=== PATIENT | male | born 1945 | race Caucasian/White ===

== ENCOUNTER 2018-12-25 07:59 | Day surgery (SDC) | payer OTHER ==
[~2018-12-25] VITALS: Ht 177.8 cm; Wt 121.7 kg
[~2018-12-25 07:59] MED LIST: ALBU90OI INH; BUDE6HFA INH; BUME2 PO; CEFD300 PO; CEPH500 PO; FENO160 PO; FENO54 PO; FLUT110OIA IH; FURO20; HYDCHL12.5 PO; LISI20 PO; LOSA50; METO25ER PO; METO50ER PO; NIAC500 PO; OXYC5 PO; POTCHL10ER PO; POTCHL20ER PO; RANI150 PO; STIOLTO RESPIMAT4 GM; TAMS.4ER PO; TESTOSTERONE TOP; THEO300ERC PO
[2018-12-25] MEDS ORDERED: Aspirin EC81 MG (08:25)
== END 2018-12-25 10:15 | disposition home or self-care (01) ==
LOC: ORSCSDS 07:59
PROVIDERS: Internal Medicine Gastroenterology
PROC: 0DB68ZX Excision of Stomach, Via Natural or Artificial Opening Endoscopic, Diagnostic (ICD-10-PCS; principal; 2018-12-25 09:15)
DX: K74.60 Unspecified cirrhosis of liver (principal); B19.20 Unspecified viral hepatitis C without hepatic coma; Z13.810 Encounter for screening for upper gastrointestinal disorder; K29.70 Gastritis, unspecified, without bleeding; K29.80 Duodenitis without bleeding; K57.10 Diverticulosis of small intestine without perforation or abscess without bleeding; I50.9 Heart failure, unspecified; G47.33 Obstructive sleep apnea (adult) (pediatric); J44.9 Chronic obstructive pulmonary disease, unspecified; Z95.0 Presence of cardiac pacemaker; Z87.891 Personal history of nicotine dependence; E66.01 Morbid (severe) obesity due to excess calories; Z68.38 Body mass index [BMI] 38.0-38.9, adult; Z79.899 Other long term (current) drug therapy
CPT/HCPCS: 88305; 88342; J7120

== ENCOUNTER 2019-02-07 08:10 | Day surgery (SDC) | payer OTHER ==
[~2019-02-07] VITALS: Ht 178 cm; Wt 123.1 kg
[~2019-02-07 08:10] MED LIST changes: +Aspirin EC81 MG; -FURO20; +FURO20 PO; -LOSA50; +LOSA50 PO; +OMEPRAZOLE20 MG PO; +TIOT18 INH
--- NOTE | 2019-02-07 10:16 | NUR ---
Discharge instructions reviewed with patient. Patient verbalizes understanding. Copy given to patient to take home. Discharged via wheelchair to private car for ride home.
== END 2019-02-07 23:53 | disposition home or self-care (01) ==
LOC: ORSCMMR 08:10 → ORD 09:30 → ORSCMMR 09:30
PROVIDERS: Orthopaedic Surgery
PROC: 01N50ZZ Release Median Nerve, Open Approach (ICD-10-PCS; principal; 2019-02-07 09:30)
DX: G56.02 Carpal tunnel syndrome, left upper limb (principal); I11.0 Hypertensive heart disease with heart failure; I50.9 Heart failure, unspecified; Z95.0 Presence of cardiac pacemaker; J44.9 Chronic obstructive pulmonary disease, unspecified; B19.20 Unspecified viral hepatitis C without hepatic coma; E78.5 Hyperlipidemia, unspecified; G47.33 Obstructive sleep apnea (adult) (pediatric); Z79.899 Other long term (current) drug therapy; Z87.891 Personal history of nicotine dependence
CPT/HCPCS: 87081; J0690; J2250; J2704; J3010; J7120

== ENCOUNTER → 2019-08-13 | Outpatient (CLI) | payer OTHER ==
[2019-08-13 18:52] LABS: Percent Saturation 25.5 % (20.0-50.0)
== END | disposition home or self-care (01) ==
LOC: LAB 15:05 → LAB SHORT 15:05
PROVIDERS: Internal Medicine Hematology & Oncology
DX: D51.8 Other vitamin B12 deficiency anemias (principal)
CPT/HCPCS: 82607; 82746; 83540; 83550

== ENCOUNTER 2019-12-31 12:26 | Day surgery (SDC) | payer OTHER ==
[~2019-12-31 12:26] MED LIST changes: +FURO40 PO; +LOSA25 PO; +TOPROL XL25 MG PO; +XARELTO20 MG PO; +ZYRTEC10 M1 PO
== END 2019-12-31 14:16 | disposition home or self-care (01) ==
LOC: ORSCSDS 12:26
PROVIDERS: Internal Medicine Gastroenterology
PROC: 0DBK8ZX Excision of Ascending Colon, Via Natural or Artificial Opening Endoscopic, Diagnostic (ICD-10-PCS; principal; 2019-12-31 13:45)
PROC: 0DBM8ZX Excision of Descending Colon, Via Natural or Artificial Opening Endoscopic, Diagnostic (ICD-10-PCS; principal; 2019-12-31 13:45)
PROC: 0DBH8ZX Excision of Cecum, Via Natural or Artificial Opening Endoscopic, Diagnostic (ICD-10-PCS; principal; 2019-12-31 13:45)
PROC: 0DBP8ZX Excision of Rectum, Via Natural or Artificial Opening Endoscopic, Diagnostic (ICD-10-PCS; principal; 2019-12-31 13:45)
DX: Z12.11 Encounter for screening for malignant neoplasm of colon (principal); D12.2 Benign neoplasm of ascending colon; D12.4 Benign neoplasm of descending colon; K62.1 Rectal polyp; K74.60 Unspecified cirrhosis of liver; G47.33 Obstructive sleep apnea (adult) (pediatric); J45.909 Unspecified asthma, uncomplicated; J44.9 Chronic obstructive pulmonary disease, unspecified; Z95.0 Presence of cardiac pacemaker; I10 Essential (primary) hypertension; I48.0 Paroxysmal atrial fibrillation; Z79.01 Long term (current) use of anticoagulants; Z79.899 Other long term (current) drug therapy; Z87.891 Personal history of nicotine dependence
CPT/HCPCS: 88305; J2704; J7120

== ENCOUNTER → 2022-05-14 | Outpatient (CLI) | payer OTHER ==
[~2022-05-14] MED LIST changes: +ALEVAZOL TOP; +ATOR40TA PO; +Acetaminophen650 M1 PO; +Cleocin HCl150 MG PO; +METF500 PO; +METO2.5 PO; +SYMBICORT 160-4.6 GM
[2022-05-19 09:25] LABS: Stool Occult Bld Immuno 1 Negative (NEGATIVE)
== END | disposition home or self-care (01) ==
LOC: LAB SHORT 12:00 → LAB 12:00 → LAB SHORT 05-18 18:25
PROVIDERS: Physician Assistant
DX: D64.9 Anemia, unspecified (principal)
CPT/HCPCS: G0328

== ENCOUNTER → 2023-08-09 | Outpatient (CLI) | payer OTHER ==
[2023-08-15 11:34] LABS: Stool Occult Bld Immuno 1 Negative (NEGATIVE)
== END ==
LOC: LAB SHORT 15:38 → LAB 15:38
PROVIDERS: Physician Assistant
DX: Z12.11 Encounter for screening for malignant neoplasm of colon (principal); Z12.12 Encounter for screening for malignant neoplasm of rectum
CPT/HCPCS: G0328

== ENCOUNTER 2025-05-07 09:06 | Day surgery (SDC) | payer OTHER ==
[~2025-05-07] VITALS: Ht 172.7 cm; Wt 101.1 kg
[~2025-05-07 09:06] MED LIST changes: +OZEMPIC0.25 MG/02 SC
--- NOTE | 2025-05-07 09:28 | NUR ---
Ambulatory in Day Surgery History, Chart, Medications and Allergies reviewed before start of procedure. Pre-Op teaching done. Pt verbalizes understanding. Patient States Post-Procedure ride home has been arranged.
[2025-05-07 09:41] VITALS: BP 143/65
--- NOTE | 2025-05-07 10:42 | NUR ---
05/07/25 1042 Lana Samayoa MONITOR INTACT WITH CONTINUOUS PULSE OXIMETRY, CONTINUOUS END TITAL CO2, 3-LEAD EKG AND INTERMITTENT BLOOD PRESSURE.Bite Block Placed
[2025-05-07 11:14] VITALS: BP 105/56
[2025-05-07 11:26] VITALS: BP 138/69
== END 2025-05-07 23:00 | disposition home or self-care (01) ==
LOC: ORSCMMR 09:06 → ORD 09:30 → ORSCMMR 23:00
PROVIDERS: Internal Medicine Gastroenterology
PROC: 0DBL8ZX Excision of Transverse Colon, Via Natural or Artificial Opening Endoscopic, Diagnostic (ICD-10-PCS; principal; 2025-05-07 09:30)
PROC: 0DBK8ZX Excision of Ascending Colon, Via Natural or Artificial Opening Endoscopic, Diagnostic (ICD-10-PCS; principal; 2025-05-07 09:30)
DX: Z12.11 Encounter for screening for malignant neoplasm of colon (principal); D12.2 Benign neoplasm of ascending colon; K63.5 Polyp of colon; Z86.0101 Personal history of adenomatous and serrated colon polyps; G47.33 Obstructive sleep apnea (adult) (pediatric); E11.9 Type 2 diabetes mellitus without complications; J44.9 Chronic obstructive pulmonary disease, unspecified; I10 Essential (primary) hypertension; E78.00 Pure hypercholesterolemia, unspecified; K21.9 Gastro-esophageal reflux disease without esophagitis; I48.91 Unspecified atrial fibrillation; N40.0 Benign prostatic hyperplasia without lower urinary tract symptoms; Z95.0 Presence of cardiac pacemaker; Z79.01 Long term (current) use of anticoagulants; Z79.84 Long term (current) use of oral hypoglycemic drugs; Z79.899 Other long term (current) drug therapy; Z79.85 Long-term (current) use of injectable non-insulin antidiabetic drugs; Z87.891 Personal history of nicotine dependence
CPT/HCPCS: 82947; 88305; J2704; J7120